=== PATIENT | female | born 1975 | race Caucasian/White ===

== ENCOUNTER 2017-05-22 19:06 | Emergency (ER) | payer SELFPAY ==
[2017-05-22 19:27] VITALS: TEMP 99.2
[2017-05-22] MEDS ORDERED: KETOROLAC TROMETHAMINE 30 MG/ML SOL IV ONE (19:45)
[2017-05-22] MEDS ORDERED: SODIUM CHLORIDE 0.9% 1000ML 1,000 ML IV ONE (19:45)
[2017-05-22] MEDS ORDERED: ONDANSETRON HCL 4 MG/2 ML SOL IV ONE (19:46)
[2017-05-22] MEDS ORDERED: ONDANSETRON HCL 4 MG/2 ML SOL ONE (19:49)
[2017-05-22] MEDS ORDERED: KETOROLAC TROMETHAMINE 30 MG/ML SOL ONE (19:49)
[2017-05-22] MEDS ORDERED: SODIUM CHLORIDE 0.9% FLUSH 10 ML SOL IV PRN (19:53)
[2017-05-22 20:09] VITALS: RESP 18
[2017-05-22] MEDS ORDERED: AMITRIPTYLINE 25 MG TAB ONE (20:43)
[2017-05-22] MEDS ORDERED: AMITRIPTYLINE 25 MG TAB PO ONE (20:45)
[2017-05-22] MEDS ORDERED: HYDROMORPHONE HCL 2 MG/ML SOL IV ONE (21:01)
[2017-05-22] MEDS ORDERED: HYDROMORPHONE HCL 2 MG/ML SOL ONE (21:02)
[2017-05-22 22:14] VITALS: BP 134/75; PULSE 85; O2SAT 94
== END 2017-05-22 22:05 | disposition home or self-care (01) | DRG 914 ==
LOC: ED 19:06
DX: S09.90XA Unspecified injury of head, initial encounter (principal); S46.912A Strain of unspecified muscle, fascia and tendon at shoulder and upper arm level, left arm, initial encounter; W10.9XXA Fall (on) (from) unspecified stairs and steps, initial encounter
CPT/HCPCS: 70450; 72040; 96365; 96374; 96375; 99284; 99285; J1170; J1885; J2405